=== PATIENT | female | born 1990 | race Caucasian/White ===

== ENCOUNTER 2017-12-04 15:32 | Emergency (ER) | payer SELFPAY ==
[~2017-12-04] VITALS: Ht 160 cm; Wt 53.0 kg
[~2017-12-04 15:32] MED LIST: BACTRIM,SEPT1 TABLET PO; BENTYL20 MG PO; CEFDINIR300 MG PO; CLEOCIN300 MG PO; LORTAB 5-325 M1 EACH PO; MOTRIN600 MG PO; NAPROSYN500 MG PO; PROMETHAZINE HC25 M1 PO; ROBITUSSIN AC,T10 ML PO; ULTRAM50 MG PO; ZITHROMAX250 MG PO
[2017-12-04] MEDS ORDERED: HYCODAN SYRUP480 ML PO (19:28)
[2017-12-04 19:41] VITALS: BP 107/71
== END 2017-12-04 19:42 | disposition home or self-care (01) ==
LOC: EME 15:32
PROVIDERS: Nurse Practitioner Family
DX: J11.1 Influenza due to unidentified influenza virus with other respiratory manifestations (principal); Z87.891 Personal history of nicotine dependence; Z88.1 Allergy status to other antibiotic agents
CPT/HCPCS: 71046; 87502; 87651 90; 99281; 99284